=== PATIENT | male | born 1955 | race Caucasian/White ===

== ENCOUNTER 2017-03-22 08:51 | Day surgery (SDC) | payer MEDICAID ==
[~2017-03-22 08:51] MED LIST: Lactated Ringers 1,000 ML IV SCH
[2017-03-22] MEDS ORDERED: Propofol 200 MG/20 ML SDV ONE (09:58)
[2017-03-22] MEDS ORDERED: fentaNYL 100 MCG/2 ML SDV ONE (09:58)
[2017-03-22 12:01] VITALS: BP 132/75
--- NOTE | 2017-03-25 09:42 | OR ---
PREOPERATIVE DIAGNOSIS: History of polyps. POSTOPERATIVE DIAGNOSES: Rectal polyp removed, sigmoid diverticulosis. PROCEDURE PROPOSED: Total flexible colonoscopy. PROCEDURE DONE: Total flexible colonoscopy with polypectomy x1. INDICATION: This is a 61-year-old gentleman with history of polyps. He comes in for a recommended followup exam. He also has a family history of a sister with colon cancer. He denies any symptomatology. TECHNIQUE: The patient brought to the endoscopy suite, placed in the left lateral decubitus position. He was sedated with propofol per MONITORING ANALYST. The flexible video colonoscope was then passed transanally and under visualization advanced to the cecum. Examination revealed a normal ascending, transverse, descending colon. The sigmoid colon revealed moderate diverticulosis, and in the rectum at about 10 cm, there was a small polyp removed with cold snare technique and retrieved with suction. He tolerated the entire procedure well. As the scope was then withdrawn. IMPRESSION: 1. Rectal polyp removed. 2. Sigmoid diverticulosis. 3. Family history of colon cancer, sister. PLAN: He will be sent a letter with the pathology report. I felt that he should continue with colonic surveillance every 5 years hereafter. SCM: 03/22/2017 11:02:01 MODL: 03/22/2017 15:35:00 /[id number]
--- NOTE | 2017-04-15 08:18 | LETTER ---
04/12/2017 RE: AMOS KUMAR : 1955 Dear Amos: The polyp removed from your colon was a benign polyp but was considered a precancerous type polyp. There were no worrisome changes within this polyp, and because of this finding, I feel that you should have your colon checked every 5 years hereafter. If you have any further questions regarding this, feel free to call. Respectfully,
== END 2017-03-22 12:04 | disposition home or self-care (01) ==
LOC: VM.SDS 08:51
PROVIDERS: ATTEND Surgery
DX: Z12.11 Encounter for screening for malignant neoplasm of colon (principal); K57.30 Diverticulosis of large intestine without perforation or abscess without bleeding; Z98.890 Other specified postprocedural states; Z79.899 Other long term (current) drug therapy
CPT/HCPCS: 45385; J2704; J3010; J7120